=== PATIENT | male | born 1980 | race Caucasian/White ===

== ENCOUNTER 2017-12-12 12:16 | Emergency (ER) | payer SELFPAY ==
[~2017-12-12] VITALS: Ht 185.4 cm; Wt 72.7 kg
[2017-12-12 12:18] VITALS: BP 129/93; PULSE 88; TEMP 98.2
[2017-12-12] MEDS ORDERED: BENADRYL50 MG PO (12:21)
[2017-12-12] MEDS ORDERED: ALLEGRA ALLERGY60 MG PO (12:22)
[2017-12-12] MEDS ORDERED: ALEVE 220MG220 MG PO (12:22)
[2017-12-12] MEDS ORDERED: FLEXERIL 1010 MG/TAB PO (12:59)
[2017-12-12] MEDS ORDERED: MOTRIN 800800 MG/TAB PO (12:59)
== END 2017-12-12 13:25 | disposition home or self-care (01) ==
LOC: COL.ER 12:16
DX: S13.4XXA Sprain of ligaments of cervical spine, initial encounter (principal); V43.52XA Car driver injured in collision with other type car in traffic accident, initial encounter

== ENCOUNTER 2017-12-24 06:39 | Emergency (ER) | payer BC ==
[~2017-12-24] VITALS: Ht 185.4 cm; Wt 77.4 kg
[~2017-12-24 06:39] MED LIST: ALEVE 220MG220 MG PO; ALLEGRA ALLERGY60 MG PO; BENADRYL50 MG PO; FLEXERIL 1010 MG/TAB PO; MOTRIN 800800 MG/TAB PO
[2017-12-24 06:43] VITALS: BP 119/84
[2017-12-24] MEDS ORDERED: CEPHALEXIN500 M1 PO (07:37)
[2017-12-24] MEDS ORDERED: NORCO 325 MG-51 TAB PO (07:37)
[2017-12-24 07:45] VITALS: PULSE 74; TEMP 97.2
== END 2017-12-24 07:45 | disposition home or self-care (01) ==
LOC: COL.ER 06:39
DX: M70.42 Prepatellar bursitis, left knee (principal); Z98.890 Other specified postprocedural states

== ENCOUNTER 2021-05-24 11:12 | Emergency (ER) | payer OTHER ==
[~2021-05-24] VITALS: Ht 185.4 cm; Wt 68.2 kg
[~2021-05-24 11:12] MED LIST changes: +CEPHALEXIN500 M1 PO; +NORCO 325 MG-51 TAB PO
[2021-05-24 11:35] VITALS: TEMP 98.1
[2021-05-24 12:08] LABS: BASO % 0.7 % (0.0-2.0); EOS # 0.1 K/mm3 (0.0-0.7); GRAN # 3.5 K/mm3 (1.4-6.5); GRAN % 56.9 % (42.2-75.2); HEMATOCRIT 42.3 % (42.0-52.0); HEMOGLOBIN 14.6 g/dl (13.5-18.0); LYMPH % 32.7 % (20.0-51.0); MEAN CELL VOLUME 87 fl (80.0-100.0); MEAN CORPUSCULAR HEMOGLOBIN 30 pg (27-31); MEAN CORPUSCULAR HGB CONC 35 g/dl (33.0-37.0); MEAN PLATELET VOLUME 9.5 fl (7.4-10.4); MONO # 0.5 K/mm3 (0.1-0.6); MONO % 7.4 % (1.7-9.3); PLATELET COUNT 266 K/mm3 (130-400); RED BLOOD COUNT 4.88 M/mm3 (4.20-5.60); REDCELL DISTRIBUTION WIDTH-CV 12.1 % (11.5-14.5)
[2021-05-24 12:36] LABS: ALBUMIN 4.6 gm/dL (3.5-5.0); BILIRUBIN,TOTAL 0.7 mg/dL (0.2-1.2); CALCIUM 9.1 mg/dL (8.4-10.2); CREATININE, serum 0.81 mg/dL (0.72-1.25); POTASSIUM 3.9 mmol/L (3.5-4.5); TOTAL PROTEIN 7.5 gm/dL (6.2-8.1)
[2021-05-24] MEDS ORDERED: FLEXERIL 1010 MG/TAB PO (14:00)
[2021-05-24 14:19] VITALS: BP 139/86; PULSE 81
== END 2021-05-24 14:25 | disposition home or self-care (01) ==
LOC: COL.ER
PROVIDERS: Emergency Medicine
DX: S16.1XXA Strain of muscle, fascia and tendon at neck level, initial encounter (principal); S20.212A Contusion of left front wall of thorax, initial encounter; R10.9 Unspecified abdominal pain; W13.2XXA Fall from, out of or through roof, initial encounter; Y99.0 Civilian activity done for income or pay
CPT/HCPCS: J2270; Q9967